=== PATIENT | male | born 1965 | race Two or more races ===

== ENCOUNTER 2018-12-03 09:34 | Emergency (ER) | payer OTHER ==
[~2018-12-03] VITALS: Ht 185.4 cm; Wt 93.0 kg
[~2018-12-03 09:34] MED LIST: TAMS0.4C; ULTRAM50 MG
[2018-12-03] MEDS ORDERED: AMOX1TAB5 PO (10:16)
[2018-12-03] MEDS ORDERED: ZYRTEC10 M3 PO (10:16)
[2018-12-03] MEDS ORDERED: MEDROLPACK PO (10:16)
== END 2018-12-03 10:41 | disposition home or self-care (01) ==
LOC: ER 09:34
DX: S00.87XA Other superficial bite of other part of head, initial encounter (principal); T63.441A Toxic effect of venom of bees, accidental (unintentional), initial encounter; Y93.89 Activity, other specified; Y92.89 Other specified places as the place of occurrence of the external cause; Y99.8 Other external cause status

== ENCOUNTER 2018-12-05 20:47 | Emergency (ER) | payer OTHER ==
[~2018-12-05] VITALS: Ht 185.4 cm; Wt 93.4 kg
[~2018-12-05 20:47] MED LIST changes: +AMOX1TAB5 PO; +MEDROLPACK PO; +ZYRTEC10 M3 PO
[2018-12-06] MEDS ORDERED: KETO10TA2 PO (00:21)
[2018-12-06] MEDS ORDERED: TAMS0.4C PO (00:21)
[2018-12-06] MEDS ORDERED: CIPRO500 MG PO (00:21)
== END 2018-12-06 00:45 | disposition home or self-care (01) ==
LOC: ER 20:47
DX: N20.1 Calculus of ureter (principal); R10.32 Left lower quadrant pain

== ENCOUNTER 2018-12-17 10:11 | Outpatient (CLI) | payer OTHER ==
[~2018-12-17 10:11] MED LIST changes: +CIPRO500 MG PO; +KETO10TA2 PO; +TAMS0.4C PO
== END 2018-12-17 10:15 | disposition home or self-care (01) ==
LOC: RX STUDY 10:11
DX: N20.1 Calculus of ureter (principal)

== ENCOUNTER 2020-02-19 09:29 | Emergency (ER) | payer OTHER ==
[~2020-02-19] VITALS: Ht 185.4 cm; Wt 93.0 kg
== END 2020-02-19 13:47 | disposition home or self-care (01) ==
LOC: ER 09:29
DX: U07.1 COVID-19 (principal); B34.9 Viral infection, unspecified